=== PATIENT | male | born 1990 | race Caucasian/White ===

== ENCOUNTER 2020-06-08 17:15 | Emergency (ER) | payer OTHER ==
[2020-06-08 17:27] VITALS: BP 125/83; PULSE 83; TEMP 98; BMI 31.8
[2020-06-08] MEDS ORDERED: DIPHTH,PERTUSS(ACELL),TET 0.5 ML DISP.SYRIN IM ONE (17:44)
--- NOTE | 2020-06-08 18:07 | PDOC ---
History of Present Illness - General Chief Complaint: Laceration Stated Complaint: L LEG INJURY/LACERATION Time Seen by Provider: 06/08/20 17:26 History Source: Patient Exam Limitations: No Limitations - History of Present Illness Initial Comments: 06/08/20 18:07 29 year old male with no pmhx presenting with laceration to L ankle. Patient was taking out the garbage when a piece of broken glass lacerated his left ankle. Patient states he does not believe there is any glass in the wound however is unsure. Patient denies any numbness tingling proximal or distal to the wound. Patient tetanus status is unknown. Pt otherwise denies: fevers, chills, syncope, lightheadedness, dizziness, headaches, neck pain, chest pain, shortness of breath, palpitations, back pain, abdominal pain, nausea, vomiting, diarrhea, constipation. 06/08/20 21:58 Past History - Medical History Allergies/Adverse Reactions: Allergies Allergy/AdvReac Type Severity Reaction Status Date / Time No Known Allergies Allergy Verified 06/08/20 17:26 Home Medications: Ambulatory Orders NK [No Known Home Medication] 10/19/16 COPD: No - Psycho-Social/Smoking History Smoking History: Never smoked Have you smoked in the past 12 months: Yes Number of Cigarettes Smoked Daily: 2 'Breaking Loose' booklet given: 10/19/16 - Substance Abuse Hx (Audit-C & DAST Scrn) How often the patient has a drink containing alcohol: 2-4 times / month Score: In Men: 4 or > Positive; In Women: 3 or > Positive: 2 Screen Result (Pos requires Nsg. Audit-10AR): Negative *Physical Exam - Vital Signs Last Vital Signs Temp Pulse Resp BP Pulse Ox 98 F 83 18 125/83 99 06/08/20 17:23 06/08/20 17:23 06/08/20 17:23 06/08/20 17:23 06/08/20 17:23 - Physical Exam 06/08/20 18:08 Gen: AAOx 3, no acute distress, comfortable, no signs of respiratory distress HENT: atraumatic, normocephalic with no laceration or contusion. Nasal mucosa without erythema. Oropharynx without erythema or exudates. Mucous membranes moist. EYES: PERRL, EOM intact, conjunctiva pink NECK: supple; trachea midline; no JVD, no lymphadenopathy, or thyromegaly CV: RRR no murmurs, gallops, or rubs. CHEST: CTA b/l no wheezing, rales or rhonchi ABD: +BS/ND. no TTP; soft, no rebound, no guarding EXTREMITY: no cyanosis or erythema. 2+ dorsalis pedis, posterior tibial, and radial pulse. No pedal edema; no calf swelling or tenderness SKIN: no rash, warm and dry, no diaphoresis HEME: no purpura or ecchymosis NEURO: normal speech, CN II-XII intact, sensation intact, normal gait, no cerebellar deficits MS: 5/5 strength in all extremities, FROM intact in all extremities. LLE: 4cm laceration to anterior martins w/ active bleeding SILT Procedures - Laceration/Wound Repair Left Anterior Ankle Wound Length: 5.0 to 7.5 cm Wound Explored: clean, no foreign body present Wound's Depth, Shape: superficial, irregular, flap Irrigated w/ Saline: Yes Betadine Prep: Yes Anesthesia: 1% Lidocaine Amount of Anesthetic (ccs): 5 Wound Debrided: minimal Wound Repaired With: Sutures Suture Size/Type: 4:0 Number of Sutures: 12 (4/12 matress sutures) Layer Closure: No Sterile Dressing Applied: Yes Splint Applied: No ED Treatment Course - RADIOLOGY Radiology Studies Ordered: Category Date Time Status ANKLE-LEFT [RAD] Stat Radiology 06/08/20 17:44 Ordered Medical Decision Making - Medical Decision Making 06/08/20 18:09 29 year old male with laceration Update tetanus XR to r/o FB Will repair laceration with sutures Laceration repaired, refer to procedure note Pt to return in 7 days for suture removal Pt appears well and is safe and stable for discharge with strict return precautions including signs and symptoms requring immediate return to the ED Supportive care instructions explained and given to pt. Reasons to return emergently to ER explained and given. Importance of follow up with PMD and other specialists as indicated stressed to pt. Pt verbalized understanding of instructions. Pt to follow up with PMD in 2 days. Discharge - Discharge Information Problems reviewed: Yes Clinical Impression/Diagnosis: Laceration of ankle Qualifiers: Encounter type: initial encounter Laterality: left Qualified Code(s): S91.012A - Laceration without foreign body, left ankle, initial encounter Condition: Stable Disposition: HOME - Follow up/Referral - Patient Discharge Instructions Patient Printed Discharge Instructions: DI for Laceration Repair Additional Instructions: RETURN IN 7 DAYS FOR SUTURE REMOVAL - Post Discharge Activity
== END 2020-06-08 18:56 | disposition home or self-care (01) ==
LOC: JERFT 17:15
PROC: 0HQKXZZ Repair Right Lower Leg Skin, External Approach (ICD-10-PCS; principal; 2020-06-08)
PROC: 3E0234Z Introduction of Serum, Toxoid and Vaccine into Muscle, Percutaneous Approach (ICD-10-PCS; 2020-06-08)
DX: S91.012A Laceration without foreign body, left ankle, initial encounter (principal)
CPT/HCPCS: 73610-TC-LT-FY; 90715; 99284-25

== ENCOUNTER 2020-06-17 12:34 | Emergency (ER) | payer OTHER ==
[2020-06-17 12:46] VITALS: BP 128/85; PULSE 78; TEMP 98.7; BMI 31.8
--- NOTE | 2020-06-17 12:54 | PDOC ---
History of Present Illness - General Chief Complaint: Suture/Staple Removal(Here) Stated Complaint: REMOVAL OF STITCHES Time Seen by Provider: 06/17/20 12:46 History Source: Patient Exam Limitations: No Limitations - History of Present Illness Initial Comments: 06/17/20 13:03 29 year old male no pmhx presenting for suture removal. Pt had sutures placed in L ankle 7 days ago here. Denies fever, chills, weakness, N/V/D. Past History - Medical History Allergies/Adverse Reactions: Allergies Allergy/AdvReac Type Severity Reaction Status Date / Time No Known Allergies Allergy Verified 06/17/20 12:44 Home Medications: Ambulatory Orders Cephalexin [Keflex] 500 mg PO TID 5 Days #15 capsule 06/17/20 COPD: No - Psycho-Social/Smoking History Smoking History: Current every day smoker Have you smoked in the past 12 months: Yes Number of Cigarettes Smoked Daily: 2 Information on smoking cessation initiated: No 'Breaking Loose' booklet given: 10/19/16 - Substance Abuse Hx (Audit-C & DAST Scrn) How often the patient has a drink containing alcohol: Never Score: In Men: 4 or > Positive; In Women: 3 or > Positive: 0 Screen Result (Pos requires Nsg. Audit-10AR): Negative In the last yr the pt used illegal drug/Rx for NonMed reason: No Score: Yes response is considered Positive: 0 Screen Result (Positive result requires Nsg. DAST-10): Negative *Physical Exam - Vital Signs Last Vital Signs Temp Pulse Resp BP Pulse Ox 98.7 F 78 18 128/85 100 06/17/20 12:45 06/17/20 12:45 06/17/20 12:45 06/17/20 12:45 06/17/20 12:45 - Physical Exam 06/17/20 13:04 A&Ox3 NAD CTA RRR Left ankle: sutures in place wound well approximated, with mild surrounding erythema not extending up or down LLE, sensation intact FROM. Medical Decision Making - Medical Decision Making 06/17/20 13:06 29 year old male here for suture removal VSS Sutures removed without complication Pt placed on 5 days keflex and wound care instructions given Pt appears well and is safe and stable for discharge with strict return precautions including signs and symptoms requring immediate return to the ED Supportive care instructions explained and given to pt. Reasons to return emergently to ER explained and given. Importance of follow up with PMD and other specialists as indicated stressed to pt. Pt verbalized understanding of instructions. Pt to follow up with PMD in 2 days. Discharge - Discharge Information Problems reviewed: Yes Clinical Impression/Diagnosis: Visit for suture removal Condition: Stable Disposition: HOME - Additional Discharge Information Prescriptions: Cephalexin [Keflex] 500 mg PO TID 5 Days #15 capsule - Follow up/Referral - Patient Discharge Instructions Patient Printed Discharge Instructions: DI for Suture Removal Additional Instructions: return to the ED if redness spreads - Post Discharge Activity Work/Back to School Note: Back to Work
== END 2020-06-17 13:07 | disposition home or self-care (01) ==
LOC: JERFT 12:34
DX: Z48.02 Encounter for removal of sutures (principal)
CPT/HCPCS: 99281-25

== ENCOUNTER 2020-12-16 14:25 | Emergency (ER) | payer OTHER ==
[2020-12-16 14:39] VITALS: BP 126/74; PULSE 79; TEMP 98.5; BMI 26.5
== END 2020-12-16 16:58 | disposition home or self-care (01) ==
LOC: JER 14:25 → JERFT 14:25
DX: S82.402A Unspecified fracture of shaft of left fibula, initial encounter for closed fracture (principal); W01.0XXA Fall on same level from slipping, tripping and stumbling without subsequent striking against object, initial encounter
CPT/HCPCS: 73610-TC-LT-FY; 99283-25

== ENCOUNTER 2020-12-26 08:39 | Day surgery (SDC) | payer OTHER ==
[2020-12-22 16:42] VITALS: BMI 31.1
[2020-12-26] MEDS ORDERED: ROPIVACAINE HCL 0.5% 30ML VIAL ONE (12:17)
[2020-12-26] MEDS ORDERED: MIDAZOLAM HCL 2 MG/2 ML SINGLE DOSE VIAL ONE (12:18)
[2020-12-26] MEDS ORDERED: LIDOCAINE 1% P/F 10 MG/ML VIAL ONE (12:21)
[2020-12-26] MEDS ORDERED: oxyCODONE HCL 5 MG TABLET PO PRN (14:11)
[2020-12-26] MEDS ORDERED: ONDANSETRON 4 MG/2 ML VIAL IVPUSH PRN (14:11)
[2020-12-26] MEDS ORDERED: LACTATED RINGERS SOLUTION 1,000 ML IV SCH (14:15)
[2020-12-26 15:17] VITALS: TEMP 98.2
[2020-12-26 16:02] VITALS: BP 120/64; PULSE 76
== END 2020-12-26 16:06 | disposition home or self-care (01) ==
LOC: FASU 08:39
PROVIDERS: ATTEND Orthopaedic Surgery Sports Medicine
PROC: 0QSK04Z Reposition Left Fibula with Internal Fixation Device, Open Approach (ICD-10-PCS; principal; 2020-12-26 13:05)
DX: S82.842A Displaced bimalleolar fracture of left lower leg, initial encounter for closed fracture (principal); X58.XXXA Exposure to other specified factors, initial encounter; Y92.9 Unspecified place or not applicable; Y93.9 Activity, unspecified
CPT/HCPCS: 27814; C1713; 73610-TC-LT-FY; 73630-TC-LT; 94760

== ENCOUNTER 2023-07-21 01:11 | Emergency (ER) | payer OTHER ==
[2023-07-21 01:28] VITALS: BP 138/91; PULSE 92; RESP 20; TEMP 98.3; BMI 33.6
[2023-07-21] MEDS ORDERED: ACETAMINOPHEN 325 MG TABLET (FP) PO ONE (02:18)
[2023-07-21] MEDS: ALBUTEROL SO4 2.5/IPRATROPIUM 0.5 INH SOL 3 ML VIAL.NEB. NEB SCH (02:27)
[2023-07-21] MEDS ORDERED: DEXAMETHASONE SOD PHOSPHATE 10 MG/1 ML VIAL IM ONE (02:32)
[2023-07-21] MEDS ORDERED: ACETAMINOPHEN 325 MG TABLET (FP) ONE (02:32)
[2023-07-21] MEDS ORDERED: ALBUTEROL SO4 2.5/IPRATROPIUM 0.5 INH SOL 3 ML VIAL.NEB. NEB ONE (02:33)
[2023-07-21] MEDS ORDERED: DEXAMETHASONE SOD PHOSPHATE 10 MG/1 ML VIAL ONE (02:37)
[2023-07-21] MEDS ORDERED: ALBUTEROL SO4 HFA INHALER IH ONE ×2 (03:49→03:55)
== END 2023-07-21 03:57 | disposition home or self-care (01) ==
LOC: JER 01:11
PROC: 3E023GC Introduction of Other Therapeutic Substance into Muscle, Percutaneous Approach (ICD-10-PCS; principal; 2023-07-21)
PROC: 3E0F7GC Introduction of Other Therapeutic Substance into Respiratory Tract, Via Natural or Artificial Opening (ICD-10-PCS; 2023-07-21)
PROC: 3E0F7GC Introduction of Other Therapeutic Substance into Respiratory Tract, Via Natural or Artificial Opening (ICD-10-PCS; 2023-07-21)
DX: M79.601 Pain in right arm (principal); M79.602 Pain in left arm; R06.02 Shortness of breath; J45.909 Unspecified asthma, uncomplicated; S46.811A Strain of other muscles, fascia and tendons at shoulder and upper arm level, right arm, initial encounter; S46.812A Strain of other muscles, fascia and tendons at shoulder and upper arm level, left arm, initial encounter; X50.0XXA Overexertion from strenuous movement or load, initial encounter
CPT/HCPCS: 71045-TC-FY; 93005; 93010; 99284-25; J1100

== ENCOUNTER 2024-12-01 04:46 | Day surgery (SDC) | payer OTHER ==
[2024-12-01] MEDS ORDERED: DIPHTH,PERTUSS(ACELL),TET 0.5 ML DISP.SYRIN IM ONE (05:22)
[2024-12-01] MEDS ORDERED: ACETAMINOPHEN 325 MG TABLET (FP) ONE (05:22)
[2024-12-01] MEDS: DIPHTH,PERTUSS(ACELL),TET 0.5 ML DISP.SYRIN IM ONE (05:23)
[2024-12-01] MEDS: ACETAMINOPHEN 325 MG TABLET (FP) PO ONE (05:26)
[2024-12-01] MEDS ORDERED: morphine SULFATE 4 MG/ML VIAL ONE (08:00)
[2024-12-01] MEDS: morphine SULFATE 4 MG/ML VIAL IVPUSH ONE (08:10)
[2024-12-01] MEDS ORDERED: ACETAMINOPHEN 1000 MG/100 ML BAG IVPB PRN (10:08)
[2024-12-01 12:07] LABS: HEMATOCRIT 42.7 % (35.4-49); HEMOGLOBIN 14.4 GM/dL (11.7-16.9); MCHC 33.8 g/dl (32.0-35.9); MEAN CELL VOLUME 91.7 fl (80-96); MEAN PLT VOLUME 8.4 fl (7.5-11.1); PLATELET COUNT 212 10^3/uL (134-434); RBC 4.66 M/mm3 (4.00-5.60); RDW 13.2 % (11.9-15.9)
[2024-12-01 12:36] LABS: POTASSIUM 4.1 mmol/L (3.5-5.1)
[2024-12-01 12:37] LABS: CALCIUM 8.8 mg/dL (8.5-10.1)
[2024-12-01 12:38] LABS: BLOOD UREA NITROGEN 11.6 mg/dL (7-18)
[2024-12-01 12:41] LABS: CREATININE 0.8 mg/dL (0.55-1.3)
[2024-12-01 12:59] LABS: HIV INTERPRETATION NEGATIVE (NEGATIVE)
[2024-12-01 13:34] VITALS: BMI 35.9
[2024-12-01] MEDS: ENOXAPARIN NA (PORCINE) 40 MG/0.4 ML DISP.SYRIN SQ ONE (18:31)
[2024-12-02] MEDS: oxyCODONE HCL 5 MG TABLET PO PRN (09:32)
[2024-12-02 11:09] LABS: HEMATOCRIT 40.6 % (35.4-49); HEMOGLOBIN 13.5 GM/dL (11.7-16.9); MCH 30.9 pg (25.7-33.7); MCHC 33.3 g/dl (32.0-35.9); MEAN CELL VOLUME 92.9 fl (80-96); MEAN PLT VOLUME 8.9 fl (7.5-11.1); PLATELET COUNT 202 10^3/uL (134-434); RBC 4.37 M/mm3 (4.00-5.60)
[2024-12-02 11:19] LABS: CHLORIDE 102 mmol/L (98-107); POTASSIUM 3.8 mmol/L (3.5-5.1); SODIUM 134 mmol/L (136-145)
[2024-12-02 11:21] LABS: CALCIUM 8.7 mg/dL (8.5-10.1)
[2024-12-02 11:22] LABS: ALBUMIN 3.7 g/dl (3.4-5.0); ANION GAP 3 mmol/L (4-13); BLOOD UREA NITROGEN 10.6 mg/dL (7-18); CO2 29 mmol/L (21-32); GLUCOSE,RANDOM 106 mg/dL (74-106); MAGNESIUM 2.2 mg/dL (1.8-2.4)
[2024-12-02 11:25] LABS: CREATININE 0.8 mg/dL (0.55-1.3); PHOSPHOROUS 2.6 mg/dL (2.5-4.9); SGOT/AST 33 U/L (15-37); SGPT/ALT 140 U/L (13-61)
[2024-12-02 11:26] LABS: BILIRUBIN,TOTAL 1.2 mg/dL (0.2-1); TOT PROT 6.9 g/dl (6.4-8.2)
[2024-12-02 11:28] LABS: ALK PHOS 80 U/L (45-117)
[2024-12-02] MEDS: ACETAMINOPHEN 325 MG TABLET (FP) PO PRN (15:23)
[2024-12-02 18:36] LABS: BILIRUBIN,DIRECT 0.2 mg/dL (0.0-0.2)
[2024-12-03] MEDS: POLYETHYLENE GLYCOL (HEALTHYLAX) 3350 17 GM PACKET PO SCH ×2 (01:12→21:33)
[2024-12-03 09:22] LABS: HEMATOCRIT 40.2 % (35.4-49); HEMOGLOBIN 13.8 GM/dL (11.7-16.9); MCH 31.6 pg (25.7-33.7); MCHC 34.3 g/dl (32.0-35.9); MEAN CELL VOLUME 92.2 fl (80-96); MEAN PLT VOLUME 8.7 fl (7.5-11.1); PLATELET COUNT 206 10^3/uL (134-434); RBC 4.36 M/mm3 (4.00-5.60); WHITE BLOOD COUNT 10.9 K/mm3 (4.0-10.0)
[2024-12-03 09:29] LABS: INR 1.09 (0.83-1.09); PROTHROMBIN TIME (PATIENT) 11.9 SEC (9.7-13.0)
[2024-12-03 09:31] LABS: ACTIVATED PTT 33.4 SECONDS (25.2-36.5)
[2024-12-03 10:00] LABS: POTASSIUM 3.9 mmol/L (3.5-5.1)
[2024-12-03 10:02] LABS: BLOOD UREA NITROGEN 9.9 mg/dL (7-18); CALCIUM 8.9 mg/dL (8.5-10.1)
[2024-12-03 10:03] LABS: ALBUMIN 3.8 g/dl (3.4-5.0); MAGNESIUM 2.3 mg/dL (1.8-2.4)
[2024-12-03 10:06] LABS: CREATININE 0.8 mg/dL (0.55-1.3); PHOSPHOROUS 2.7 mg/dL (2.5-4.9)
[2024-12-03 10:07] LABS: BILIRUBIN,TOTAL 1.4 mg/dL (0.2-1); TOT PROT 7.1 g/dl (6.4-8.2)
[2024-12-03] MEDS: SODIUM CHLORIDE 1,000 ML IV SCH (11:17)
[2024-12-03] MEDS ORDERED: ROPIVACAINE HCL 0.5% 30ML VIAL ONE (16:16)
[2024-12-03] MEDS ORDERED: DEXAMETHASONE SOD PHOSPHATE 10 MG/1 ML VIAL ONE (16:17)
[2024-12-03] MEDS ORDERED: PROPOFOL 20 ML ONE ×2 (16:21→16:59)
[2024-12-03] MEDS ORDERED: MIDAZOLAM HCL 2 MG/2 ML SINGLE DOSE VIAL ONE (16:25)
[2024-12-03] MEDS: ceFAZolin SODIUM 1 GM VIAL IVPB ONE ×2 (17:03→17:05)
[2024-12-03] MEDS ORDERED: MAG HYDROX/AL HYDROX/SIMETH 30 ML UNIT-DOSE CUP PO PRN (18:39)
[2024-12-03] MEDS ORDERED: oxyCODONE HCL 5 MG TABLET PO PRN (19:09)
[2024-12-03] MEDS: LACTATED RINGERS SOLUTION 1,000 ML IV SCH (20:33)
[2024-12-03] MEDS: ONDANSETRON 4 MG/2 ML VIAL IVPUSH PRN (21:29)
[2024-12-03] MEDS: GABAPENTIN 300 MG CAPSULE PO SCH (21:33)
[2024-12-03] MEDS: SENNOSIDES/DOCUSATE COMBO (SENNA PLUS) TABLET (UD) PO SCH (21:33)
[2024-12-04] MEDS: CEFAZOLIN 2 GM/D5W 2 GM/50 ML ML IVPB SCH (00:45)
[2024-12-04] MEDS ORDERED: CEFAZOLIN 2 GM in DEXTROSE 5%-WATER - 50 ML IVPB SCH (01:00)
[2024-12-04] MEDS: ACETAMINOPHEN 325 MG TABLET (FP) PO PRN (05:55)
[2024-12-04] MEDS: PANTOPRAZOLE 40 MG TABLET PO SCH (09:16)
[2024-12-04] MEDS: MULTIVITAMINS (DAILY MVI) TABLET (FP) PO SCH (09:16)
[2024-12-04] MEDS: ASPIRIN COATED 81 MG TABLET.EC PO SCH (09:16)
[2024-12-04 10:08] LABS: HEMATOCRIT 38.1 % (35.4-49); HEMOGLOBIN 12.5 GM/dL (11.7-16.9); MCHC 32.7 g/dl (32.0-35.9); MEAN CELL VOLUME 91.7 fl (80-96); MEAN PLT VOLUME 8.8 fl (7.5-11.1); PLATELET COUNT 226 10^3/uL (134-434); RBC 4.16 M/mm3 (4.00-5.60); RDW 13.1 % (11.9-15.9); WHITE BLOOD COUNT 14.5 K/mm3 (4.0-10.0)
[2024-12-04 10:34] LABS: POTASSIUM 3.8 mmol/L (3.5-5.1)
[2024-12-04 10:36] LABS: ALBUMIN 3.4 g/dl (3.4-5.0); BLOOD UREA NITROGEN 15.2 mg/dL (7-18); CALCIUM 8.9 mg/dL (8.5-10.1); MAGNESIUM 2.4 mg/dL (1.8-2.4)
[2024-12-04 10:39] LABS: CREATININE 0.9 mg/dL (0.55-1.3); PHOSPHOROUS 3.1 mg/dL (2.5-4.9)
[2024-12-04 10:41] LABS: BILIRUBIN,TOTAL 0.5 mg/dL (0.2-1); TOT PROT 6.6 g/dl (6.4-8.2)
[2024-12-04 18:46] VITALS: BP 127/69; PULSE 84; RESP 19; TEMP 97.9
== END 2024-12-04 19:07 | disposition home or self-care (01) ==
LOC: JER 04:46 → JERBED 09:55 → UNDOADMOB 09:55 → INTOOBSV 09:58 → OBSVTOIN 09:58 → J6S 11:43 → JERBED 11:43 → SUATTDRO 12-03 18:39 → J6S 12-03 18:39 → JASUSAT 12-03 18:39
PROVIDERS: ATTEND Internal Medicine
PROC: 0QSG04Z Reposition Right Tibia with Internal Fixation Device, Open Approach (ICD-10-PCS; principal; 2024-12-03 15:00)
DX: S82.51XA Displaced fracture of medial malleolus of right tibia, initial encounter for closed fracture (principal); X58.XXXA Exposure to other specified factors, initial encounter; Y93.9 Activity, unspecified; Y92.9 Unspecified place or not applicable; Y99.9 Unspecified external cause status
CPT/HCPCS: 36415; 70450-TC; 70486-TC; 72125-TC; 73590-TC-LT-FY; 73610-TC-LT-FY; 73630-TC-LT; 76000-TC-FY; 80048; 80053; 80307; 82248; 83735; 84100; 85027; 85610; 85730; 86803; 86850; 86900; 86901; 87389; 90715; 94760; 97116-GP; 97162-GP; 99285-25; C1713; G0378; J1100

== ENCOUNTER 2025-02-18 21:29 | Emergency (ER) | payer OTHER ==
[2025-02-18 21:49] VITALS: BP 133/79; PULSE 86; RESP 18; TEMP 98; BMI 71.8
[2025-02-18] MEDS ORDERED: LIDOCAINE 4% PATCH TP ONE (22:58)
[2025-02-18] MEDS ORDERED: ACETAMINOPHEN 325 MG TABLET (FP) ONE (22:58)
[2025-02-18] MEDS: ACETAMINOPHEN 325 MG TABLET (FP) PO ONE (23:01)
[2025-02-18] MEDS: LIDOCAINE 5% TOPICAL PATCH TP ONE (23:02)
[2025-02-18] MEDS: LIDOCAINE PATCH REMOVAL MC SCH (23:02)
[2025-02-19] MEDS ORDERED: KETOROLAC TROMETHAMINE 15 MG/ML VIAL ONE (01:14)
[2025-02-19] MEDS: KETOROLAC TROMETHAMINE 15 MG/ML VIAL IM ONE (01:30)
== END 2025-02-19 01:30 | disposition home or self-care (01) ==
LOC: JER 21:29
PROC: 3E0233Z Introduction of Anti-inflammatory into Muscle, Percutaneous Approach (ICD-10-PCS; principal; 2025-02-19)
DX: M54.50 Low back pain, unspecified (principal); M25.472 Effusion, left ankle
CPT/HCPCS: 72131-TC; 73590-TC-LT-FY; 73610-TC-LT-FY; 96372; 99285-25